=== PATIENT | male | born 1940 | race Caucasian/White ===

== ENCOUNTER 2022-03-04 07:33 | Day surgery (SDC) | payer MEDICARE, OTHER, SELFPAY ==
[2022-03-04] MEDS: Tropicam./Phenyleph. (1/2.5%) 5 ML BTL OS ×3 (08:34→08:48)
[2022-03-04 08:35] VITALS: BP 124/84; PULSE 46; RESP 18; TEMP 36.1; O2SAT 97
--- NOTE | 2022-03-04 08:59 | ANES.PREOP_ITS ---
General Info Date of Service Date Performed: 03/04/22 Height: 5 ft 10.5 in Weight: 70.5 kg Body Mass Index (BMI): 21.9 Surgical Procedure: Operation Date: 03/04/22 09:55 Proposed Procedure Side Surgeon p Cataract Extraction with IOL Implant Left Carlos Schroeder MD Meds Allergies and Home Medications Allergies Allergy/AdvReac Type Severity Reaction Status Date / Time No Known Allergies Allergy Unverified 03/04/22 08:28 Home Medication Medication Instructions Recorded aspirin 81 mg capsule,delayed 81 mg PO DAILY 02/28/22 release atenolol 100 mg-chlorthalidone 25 0.5 tab PO DAILY 02/28/22 mg tablet atorvastatin 80 mg tablet 80 mg PO DAILY 02/28/22 finasteride 5 mg tablet 5 mg PO DAILY 02/28/22 trazodone 50 mg tablet 50 mg PO HS PRN 02/28/22 clopidogrel 75 mg tablet 75 mg PO DAILY 03/04/22 Current Visit Medications: Current Medications Generic Name Dose Route Start Last Admin Trade Name Freq PRN Reason Stop Dose Admin Acetaminophen 1,000 mg 03/04/22 06:00 Acetaminophen 500 Mg Tab PO Q4H PRN PRN Miscellaneous Medication 0 ml 03/04/22 06:00 Prednisolone 1%, Moxifloxacin 0.5%, Nepafenac 0.1% 5ml Btl OS DIRECTED PORTIA Miscellaneous Medication 0 ml 03/04/22 06:00 03/04/22 08:48 Tropicam./Phenyleph. (1/2.5%) 5 Ml Btl OS 1 drp DIRECTED PORTIA Administration Tetracaine HCl 0 ml 03/04/22 06:00 Tetracaine 0.5% 4 Ml Btl OS DIRECTED PORTIA PFSH Active Problems Active Problems: Problem Status Onset Code Cortical cataract of left eye H26.9 Nuclear sclerotic cataract of left eye H25.12 Medical History Medical History Asbestosis Hx of carotid artery stenosis Hyperplasia of prostate Hypertensive disorder Raised prostate specific antigen Trigger finger of right hand Surgical History Surgical History H/O knee surgery Hx of colonoscopy Hx of heart surgery TCAR 12/24/21 Hx of hernia repair Tobacco Smoking/Tobacco Use Status: Current every day Tobacco Type: cigarettes Smoking cigarettes per day: 2 Years smoked: 66 Alcohol Alcohol Intake: current Alcohol intake frequency: holidays/special occasions only Substance Use Substance use type: does not use Vital Signs and Lab Results Vital Signs Most Recent Vital Signs in EMR: Most Recent Vital Signs Temp Pulse Resp BP Pulse Ox 36.1 C L 46 L 18 124/84 97 03/04/22 08:35 03/04/22 08:35 03/04/22 08:35 03/04/22 08:35 03/04/22 08:35 Lab Results Blood Type / Crossmatch: No Data to Display Complete Blood Count: No Data to Display Complete Metabolic Panel: No Data to Display Liver Function Panel: No Data to Display Coagulation Panel: No Data to Display Cardiac Panel: No Data to Display Arterial Blood Gas: No Data to Display Venous Blood Gas: No Data to Display Pancreas Panel: No Data to Display Thyroid Panel: No Data to Display Infectious Disease: No Data to Display Blood Cultures: No Data to Display Toxicology Panel: No Data to Display Anesthesia Assessment and Plan Anesthesia History Personal History: No History of Anesthesia Complications Family History: No Family History of Anesthesia Complications Exercise Tolerance Exercise Tolerance: Metabolic Equivalents>4 Pertinent Negatives Pertinent Negatives: No Symptoms of GERD and No Major Pulmonary Symptoms or Complaints Cardiac & Pulmonary Exam Cardiac Exam: Normal S1/S2 Heart Sounds Pulmonary Exam: Clear Bilateral Breath Sounds Implantable Cardiac Device Does patient have a Pacemaker or an ICD?: No Airway Exam Known Difficult Airway: No Mallampati Class: 2 Mouth Opening: Normal (> 3cm) Thyromental Distance: Greater than 3 cm Neck Range of Motion: Full ROM Neck Circumference: Normal Teeth Condition: Removable Dentures/Plates Upper, Removable Dentures/Plates Lower and Edentulous ASA Classification ASA Score: ASA 3 Emergency Case?: No NPO Status NPO Status: NPO Clears >2 hours, Solids >8 hours Anesthesia Plan Resuscitation Status: Full Code Anesthesia Technique: MAC Anesthesia Airway Planned: Natural Airway Monitors Used: Standard Monitors Preoperative Comments:: Patient had follow up with Dr. Anne Hunter MD on 01/30/22 [place] [facility] [place] Per MD's note in system, physician is ok for patient to proceed with cataract surgery as long as patient remains on Aspirin 81mg.
[2022-03-04 09:01] VITALS: BMI 21.9
[2022-03-04] MEDS: Povidone-Iodine Ophth 30 ML BTL (09:36)
[2022-03-04] MEDS: Tetracaine 0.5% 4 ML BTL OS (09:36)
[2022-03-04] MEDS: Lidocaine 2% Jelly 6 ML SYR (09:36)
[2022-03-04] MEDS: Balanced Salt Soln.-PLUS 500 ML BAG (09:47)
[2022-03-04] MEDS: Duovisc Viscoelastic System EACH 1 EACH (09:47)
[2022-03-04] MEDS: Trypan Blue 0.06% 0.5 ML SYR (09:50)
[2022-03-04 10:12] VITALS: BP 113/85; PULSE 57; RESP 16; TEMP 36.1; O2SAT 95
--- NOTE | 2022-03-04 10:13 | W.PM.DSUDISC ---
Discharge Plan Disposition Patient Disposition: HOME Condition: Good Discharge Details Attending Provider: Carlos Schroeder Primary Care Provider: Armaan Sands Home Meds and New Rx's Prescriptions: No Action atorvastatin 80 mg tablet 80 mg PO DAILY 0RF Label Comments: TAKE 1 TABLET BY MOUTH EVERY DAY atenolol-chlorthalidone 100-25 mg tablet 0.5 tab PO DAILY 0RF Label Comments: TAKE 1/2 TABLET BY MOUTH EVERY DAY trazodone 50 mg tablet 50 mg PO HS PRN0RF Label Comments: TAKE 1 TABLET BY MOUTH EVERY DAY aspirin 81 mg Capsule,Delayed Release(Dr/Ec) 81 mg PO DAILY 0RF finasteride 5 mg tablet 5 mg PO DAILY 0RF Label Comments: TAKE 1 TABLET BY MOUTH EVERY DAY clopidogrel 75 mg tablet 75 mg PO DAILY 0RF Label Comments: TAKE 1 TABLET BY MOUTH DAILY Discharge Instructions Stand Alone Forms: Post-op Topical Cataract, Sunshine Sabillon (DSU) Discharge Orders Discharge Orders: Discharge Order (Routine); Ordered 03/04/22 Ordered By: Carlos Schroeder DS: Diagnosis Discharge Diagnosis (1) Posterior subcapsular age-related cataract of left eye: Status: Resolved
--- NOTE | 2022-03-04 10:14 | ROE_ITS ---
Date of service: 03/04/22 Time of Service: 10:14 Operative Note Operative Note DATE OF PROCEDURE: 03/04/22 PRE-OP DIAGNOSIS: Nuclear/cortical/posterior subcapsular cataract, left eye Poor red reflex, left eye secondary to cataract POST-OP DIAGNOSIS: same PROCEDURE: Cataract extraction using phacoemulsification with intraocular lens implant, left eye, using capsular staining with Vision Blue SURGEON: Carlos Schroeder ANESTHESIA TYPE: Local By Surgeon and MAC Refer to Anesthesia Record COMPLICATIONS: None Patient was transported to: same day Patient's condition: stable Implants: Neto and Neto / [employer] Tecnis [id number] Indications: Progressive decreased vision due to cataract, left eye, with poor red reflex Procedure Description: CATARACT SURGERY OPERATIVE REPORT PREOPERATIVE DIAGNOSIS: 1. Nuclear/cortical/posterior subcapsular cataract, left eye 2. Poor red reflex secondary to #1 POSTOPERATIVE DIAGNOSIS: Same OPERATION: 1. Cataract extraction using phacoemulsification with posterior chamber intraocular lens implant, left eye. 2. Capsular staining with Vision Blue IOL: IOL Truck Body Builder Apprentice/Model: Neto & Neto / KATARZYNA Tecnis [id number] IOL Power: + 22.0 diopters IOL Serial Number: [id number] Optic Diameter: 6.0 mm Haptic/Overall Diameter: 13.0 mm PHACO INFO: Isacc Cognectionurion Vision System with OZil and Active Fluidics Cumulative Dispersed Energy (CDE): 11.89 seconds SURGEON: Carlos Schroeder MD, MAIKEL ANESTHESIA: Monitored A [facility] (MAC), with local sub-tenon's anesthetic infiltration COMPLICATIONS: None SPECIMENS: None INDICATIONS FOR PROCEDURE: Patient is an 81-year-old gentleman with history of diminished visual acuity in his left eye secondary to development of significant nuclear/cortical/posterior subcapsular cataract. He also has a history of nasal pterygium of the left eye. The option of cataract surgery was offered to the patient and he felt he was symptomatic enough that he wished to proceed. PROCEDURE: The correct surgical eye was identified and marked as the left eye and the pupil was dilated in the preoperative area using mydriatics and cycloplegics. The dilated pupil size was 6.5 mm. He elected to proceed without oral sedation. The patient was brought to the operating room where cardiopulmonary monitoring was instituted and surgical time-out was performed, confirming the correct operative eye and IOL power. Topical anesthesia was administered and ophthalmic povidone-iodine 5% was instilled into the conjunctival fornices. Lidocaine gel was applied to the cornea and the haroldo-ocular area was prepped with Betadine 10% solution and draped in the usual sterile fashion for intraocular surgery, including an aperture drape. A Tegaderm transparent film dressing was cut in half and used to cover the lashes and lid margins. Care was taken to sequester the lashes and lid margins under the Tegaderm dressing. A lid speculum was placed between the lids of the operative eye and the Isacc LuxOR Revalia operating microscope was maneuvered into position. Anisa scissors were then used to make a conjunctival buttonhole approximately 6mm posterior to the limbus in the inferonasal quadrant. Blunt dissection was carried out to expose bare sclera, and a blunt-tipped sub-tenon?s anesthesia cannula was introduced and passed posteriorly along the globe where non- preserved plain lidocaine was injected into posterior sub-Tenon?s space. A katie eport knife was used to make a paracentesis port superiorly/superiortemporally. Intraocular phenylephrine/lidocaine was injected int the anterior chamber.. Air was then injected into the anterior chamber, followed by Vision Blue, which was painted over the anterior capsule and then irrigated out using BSS. The anterior chamber was filled with viscoelastic. A 2.4mm keratome knife was used to create a half-thickness groove at the limbus and then to construct a three- plane near-clear corneal tunnel extending 2.0mm into clear cornea at the 3:00 position. A flap was raised on the anterior capsule and capsulorhexis forceps were used to complete a continuous curvilinear capsulorhexis of 5.0 mm. Capsulorhexis was challenging due to constant eye movement, as well as poor visualization nasally due to the significant pterygium. Balanced salt solution was then used to perform cortical cleaving hydrodissection and nuclear hydrodelineation until the lens could be freely rotated within the capsular bag. The lens nucleus was then disassembled and removed within the capsular bag and iris plane using phacoemulsification. Residual cortical material was removed using the 45-degree angled silicone I/A tip with 0.3mm port. The posterior capsule was carefully polished to remove as much residual lens epithelial cells as safely possible. The capsular bag was then inflated and the anterior chamber deepened with viscoelastic. The lens implant described above was inserted into the capsular bag using the KATARZYNA Circle Injector. A Kuglen hook was used to dial the IOL into position. Residual viscoelastic was then removed first from posterior to the IOL, then from the anterior chamber using the I/A handpiece. The lens implant was noted to center nicely within the capsular bag. The incisions were stromally hydrated, and the anterior chamber was reformed using BSS. Then 0.5cc of moxifloxacin 1.0mg/ml were injected into the capsular bag and anterior chamber. The incisions were checked with a Weck spear and found to be secure. Several drops of ophthalmic povidone-iodine 5% were then applied to the eye followed by two drops of Imprimis combination prednisolone/moxifloxacin/nepafenac solution. The drapes were removed and a clear plastic protective eye shield was placed over the eye. The patient was then returned to Same Day Surgery in stable condition.
--- NOTE | 2022-03-04 10:35 | W.ANESPOSTOP ---
Postoperative Evaluation Date, Time and Location Date Performed: 03/04/22 Time Performed: 10:20 Patient Location: Day Surgery Unit Vital Signs Most Recent Imported Vital Signs: Most Recent Vital Signs Temp Pulse Resp BP Pulse Ox 36.1 C L 57 L 16 113/85 95 03/04/22 10:12 03/04/22 10:12 03/04/22 10:12 03/04/22 10:12 03/04/22 10:12 Pain Score Most Recent Pain Score: Most Recent Pain Score Pain Level 0 03/04/22 10:12 Assessment Mental Status: Awake (Alert & Oriented to Patient Baseline) Airway and Respiratory Function: Patent airway with normal (patient baseline) respiratory exam Cardiovascular Function: Hemodynamically Stable Hydration Status: Adequately Hydrated Nausea & Vomiting: No Nausea or Vomiting Pain: Pt. Denies Any Pain Peripheral Nerve Block: Patient did not receive a nerve block
== END 2022-03-04 10:33 | disposition home or self-care (01) ==
PROVIDERS: PCP Internal Medicine; Visit Provider Ophthalmology
PROC: (CPT 66984; principal; 2022-03-04 09:45)
DX: H25.042 Posterior subcapsular polar age-related cataract, left eye (principal); N40.0 Benign prostatic hyperplasia without lower urinary tract symptoms; I10 Essential (primary) hypertension; J61 Pneumoconiosis due to asbestos and other mineral fibers
CPT/HCPCS: 66984; V2632

== ENCOUNTER 2022-03-18 08:46 | Day surgery (SDC) | payer MEDICARE, BC, SELFPAY ==
[2022-03-18 09:14] VITALS: BP 115/65; PULSE 54; RESP 16; TEMP 36.3; O2SAT 96
[2022-03-18] MEDS: Tropicam./Phenyleph. (1/2.5%) 5 ML BTL OD ×3 (09:27→09:37)
--- NOTE | 2022-03-18 09:34 | W.ANESPRE ---
General Info Date of Service Date Performed: 03/18/22 Height: 5 ft 10.5 in Weight: 69.5 kg Body Mass Index (BMI): 21.7 Surgical Procedure: Operation Date: 03/18/22 10:40 Proposed Procedure Side Surgeon p Cataract Extraction with IOL Implant Right Carlos Schroeder MD Meds Allergies and Home Medications Allergies Allergy/AdvReac Type Severity Reaction Status Date / Time No Known Allergies Allergy Verified 03/18/22 09:19 Home Medication Medication Instructions Recorded aspirin 81 mg capsule,delayed 81 mg PO DAILY 02/28/22 release atenolol 100 mg-chlorthalidone 25 0.5 tab PO DAILY 02/28/22 mg tablet atorvastatin 80 mg tablet 80 mg PO DAILY 02/28/22 finasteride 5 mg tablet 5 mg PO DAILY 02/28/22 trazodone 50 mg tablet 50 mg PO HS PRN 02/28/22 Current Visit Medications: Current Medications Generic Name Dose Route Start Last Admin Trade Name Freq PRN Reason Stop Dose Admin Acetaminophen 1,000 mg 03/18/22 06:00 Acetaminophen 500 Mg Tab PO Q4H PRN PRN Miscellaneous Medication 0 ml 03/18/22 06:00 Prednisolone 1%, Moxifloxacin 0.5%, Nepafenac 0.1% 5ml Btl OD DIRECTED PORTIA Miscellaneous Medication 0 ml 03/18/22 06:00 03/18/22 09:32 Tropicam./Phenyleph. (1/2.5%) 5 Ml Btl OD 1 drp DIRECTED PORTIA Administration Tetracaine HCl 0 ml 03/18/22 06:00 Tetracaine 0.5% 4 Ml Btl OD DIRECTED PORTIA PFSH Active Problems Active Problems: Problem Status Onset Code Cortical cataract of right eye H26.9 Nuclear sclerotic cataract of right eye H25.11 Posterior subcapsular age-related cataract of left eye H25.042 Cortical cataract of left eye H26.9 Nuclear sclerotic cataract of left eye H25.12 Medical History Medical History (Updated 03/18/22 @ 09:39 by Cas Staton, [employer]) Asbestosis Hx of carotid artery stenosis 11/2021: Pt had Right TCAR Hyperplasia of prostate Hypertensive disorder Raised prostate specific antigen Trigger finger of right hand Surgical History Surgical History H/O knee surgery Hx of colonoscopy Hx of heart surgery TCAR 12/24/21 Hx of hernia repair Tobacco Smoking/Tobacco Use Status: Current every day Tobacco Type: cigarettes Smoking cigarettes per day: 2 Years smoked: 66 Alcohol Alcohol Intake: current Alcohol intake frequency: holidays/special occasions only Alcohol type: hard liquor Substance Use Substance use type: does not use Vital Signs and Lab Results Vital Signs Most Recent Vital Signs in EMR: Most Recent Vital Signs Temp Pulse Resp BP Pulse Ox 36.3 C L 54 L 16 115/65 96 03/18/22 09:14 03/18/22 09:14 03/18/22 09:14 03/18/22 09:14 03/18/22 09:14 Lab Results Blood Type / Crossmatch: No Data to Display Complete Blood Count: No Data to Display Complete Metabolic Panel: No Data to Display Liver Function Panel: No Data to Display Coagulation Panel: No Data to Display Cardiac Panel: No Data to Display Arterial Blood Gas: No Data to Display Venous Blood Gas: No Data to Display Pancreas Panel: No Data to Display Thyroid Panel: No Data to Display Infectious Disease: No Data to Display Blood Cultures: No Data to Display Toxicology Panel: No Data to Display Anesthesia Assessment and Plan Anesthesia History Personal History: No History of Anesthesia Complications Family History: No Family History of Anesthesia Complications Exercise Tolerance Exercise Tolerance: Metabolic Equivalents>4 Pertinent Negatives Pertinent Negatives: No Symptoms of GERD, No Major Cardiovascular Symptoms or Complaints, No Major Pulmonary Symptoms or Complaints (Smoker quit 6 months 65 pack years) and No History of CVA/TIA (Right vertebral artery ) Cardiac & Pulmonary Exam Cardiac Exam: Normal S1/S2 Heart Sounds Pulmonary Exam: Clear Bilateral Breath Sounds Implantable Cardiac Device Does patient have a Pacemaker or an ICD?: No Airway Exam Known Difficult Airway: No Mallampati Class: 2 Mouth Opening: Normal (> 3cm) Thyromental Distance: Greater than 3 cm Neck Range of Motion: Full ROM Neck Circumference: Normal Teeth Condition: Removable Dentures/Plates Upper, Removable Dentures/Plates Lower and Edentulous ASA Classification ASA Score: ASA 2 Emergency Case?: No NPO Status NPO Status: NPO Clears >2 hours, Solids >8 hours Anesthesia Plan Resuscitation Status: Full Code Anesthesia Technique: MAC Anesthesia Airway Planned: Natural Airway Monitors Used: Standard Monitors
[2022-03-18 09:56] VITALS: BMI 21.7
[2022-03-18] MEDS: Tetracaine 0.5% 4 ML BTL OD (11:10)
[2022-03-18] MEDS: Balanced Salt Soln.-PLUS 500 ML BAG (11:11)
[2022-03-18] MEDS: Duovisc Viscoelastic System EACH 1 EACH (11:15)
[2022-03-18] MEDS: Lidocaine 2% Jelly 6 ML SYR (11:17)
[2022-03-18] MEDS: Povidone-Iodine Ophth 30 ML BTL (11:19)
[2022-03-18 11:27] VITALS: BP 122/83; PULSE 53; RESP 16; TEMP 36.2; O2SAT 97
--- NOTE | 2022-03-18 11:28 | W.PM.DSUDISC ---
Discharge Plan Disposition Patient Disposition: HOME Condition: Good Discharge Details Attending Provider: Carlos Schroeder Primary Care Provider: Armaan Sands Home Meds and New Rx's Prescriptions: No Action atorvastatin 80 mg tablet 80 mg PO DAILY Label Comments: TAKE 1 TABLET BY MOUTH EVERY DAY atenolol-chlorthalidone 100-25 mg tablet 0.5 tab PO DAILY Label Comments: TAKE 1/2 TABLET BY MOUTH EVERY DAY trazodone 50 mg tablet 50 mg PO HS PRN Label Comments: TAKE 1 TABLET BY MOUTH EVERY DAY aspirin 81 mg Capsule,Delayed Release(Dr/Ec) 81 mg PO DAILY finasteride 5 mg tablet 5 mg PO DAILY Label Comments: TAKE 1 TABLET BY MOUTH EVERY DAY Discharge Instructions Stand Alone Forms: Post-op Topical Cataract, Sunshine Sabillon (DSU) Discharge Orders Discharge Orders: Discharge Order (Routine); Ordered 03/18/22 Ordered By: Carlos Schroeder
--- NOTE | 2022-03-18 11:28 | W.ANESPOSTOP ---
Postoperative Evaluation Date, Time and Location Date Performed: 03/18/22 Time Performed: 11:28 Patient Location: Day Surgery Unit Vital Signs Most Recent Imported Vital Signs: Most Recent Vital Signs Temp Pulse Resp BP Pulse Ox 36.3 C L 54 L 16 115/65 96 03/18/22 09:14 03/18/22 09:14 03/18/22 09:14 03/18/22 09:14 03/18/22 09:14 Most Recent Manually Entered Vital Signs: Adult Blood Pressure: 122/83 Heart Rate: 57 Respirations: 12 Oxygen Saturation (%): 98 Temperature (C): 363 C Pain Score (0-10 Scale): 0 Pain Score Most Recent Pain Score: Most Recent Pain Score Pain Level 0 03/18/22 09:14 Assessment Mental Status: Awake (Alert & Oriented to Patient Baseline) Airway and Respiratory Function: Patent airway with normal (patient baseline) respiratory exam Cardiovascular Function: Hemodynamically Stable Hydration Status: Adequately Hydrated Nausea & Vomiting: No Nausea or Vomiting Pain: Pt. Denies Any Pain Peripheral Nerve Block: Patient did not receive a nerve block
[2022-03-18 11:29] VITALS: BP 122/83; PULSE 57; RESP 12; TEMPC 363; TEMPC 685.4; O2SAT 98
--- NOTE | 2022-03-18 11:29 | ROE_ITS ---
Date of service: 03/18/22 Time of Service: 10:29 Operative Note Operative Note DATE OF PROCEDURE: 03/18/22 PRE-OP DIAGNOSIS: Nuclear/cortical cataract, right eye POST-OP DIAGNOSIS: same PROCEDURE: Cataract extraction using phacoemulsification with intraocular lens implant, right eye SURGEON: Carlos Schroeder ANESTHESIA TYPE: Local By Surgeon and MAC Refer to Anesthesia Record ESTIMATED BLOOD LOSS: 0 PATHOLOGY: none sent COMPLICATIONS: None Patient was transported to: same day Patient's condition: stable Implants: Neto & Neto/KATARZYNA Tecnis [id number] Indications: Progressive visual loss due to cataract, right eye Procedure Description: CATARACT SURGERY OPERATIVE REPORT PREOPERATIVE DIAGNOSIS: 1. Nuclear/cortical cataract, right eye POSTOPERATIVE DIAGNOSIS: Same OPERATION: 1. Cataract extraction using phacoemulsification with posterior chamber intraocular lens implant, right eye. IOL: IOL Aviation Tactical Readiness Officer/Model: Neto & Neto / KATARZYNA Tecnis [id number] IOL Power: + 23.0 diopters IOL Serial Number: [id number] Optic Diameter: 6.0mm Haptic/Overall Diameter: 13.0mm PHACO INFO: Isacc mySchoolNotebookurion Vision System with OZil and Active Fluidics Cumulative Dispersed Energy (CDE): 10.13 seconds SURGEON: Carlos Schroeder MD, MAIKEL ANESTHESIA: Monitored Anesthesia Care (MAC), with local sub-tenon's anesthetic infiltration COMPLICATIONS: None SPECIMENS: None INDICATIONS FOR PROCEDURE: The patient is an 81-year-old gentleman with history of diminished visual acuity in both eyes secondary to the development of bilateral cataracts. He has already undergone cataract surgery in the left eye and is doing well postoperatively. He now presents for cataract surgery in the right eye. PROCEDURE: The correct surgical eye was identified and marked as the right eye and the pupil was dilated in the preoperative area using mydriatics and cycloplegics. The dilated pupil size was 7.0 mm. He elected to proceed without oral sedation.. The patient was brought to the operating room where cardiopulmonary monitoring was instituted and surgical time-out was performed, confirming the correct operative eye and IOL power. Topical anesthesia was administered and ophthalmic povidone-iodine 5% was instilled into the conjunctival fornices. Lidocaine gel was applied to the cornea and the haroldo-ocular area was prepped with Betadine 10% solution and draped in the usual sterile fashion for intraocular surgery, including an aperture drape. A Tegaderm transparent film dressing was cut in half and used to cover the lashes and lid margins. Care was taken to sequester the lashes and lid margins under the Tegaderm dressing. A lid speculum was placed between the lids of the operative eye and the Isacc LuxOR Revalia operating microscope was maneuvered into position. Anisa scissors were then used to make a conjunctival buttonhole approximately 6mm posterior to the limbus in the inferonasal quadrant. Blunt dissection was carried out to expose bare sclera, and a blunt-tipped sub-tenon?s anesthesia cannula was introduced and passed posteriorly along the globe where non- preserved plain lidocaine was injected into posterior sub-Tenon?s space. A sideport knife was used to make a paracentesis port inferotemporally. Intrao cular phenylephrine/lidocaine was injected into the anterior chamber. The anterior chamber was filled with viscoelastic. A 2.4mm keratome knife was used to construct a 2-plane near-clear corneal tunnel extending 2.0mm into clear cornea superiortemporally. A flap was raised on the anterior capsule and capsulorhexis forceps were used to complete a continuous curvilinear capsulorhexis of 5.0 mm. Balanced salt solution was then used to perform cortical cleaving hydrodissection and nuclear hydrodelineation until the lens could be freely rotated within the capsular bag. The lens nucleus was then disassembled and removed within the capsular bag and iris plane using phacoemulsification. Residual cortical material was removed using the I/A handpiece. The posterior capsule was carefully polished to remove as much residual lens epithelial cells as safely possible. The capsular bag was then inflated and the anterior chamber deepened with viscoelastic. The lens implant described above was inserted into the capsular bag using the KATARZYNA [place] Injector. A Kuglen hook was used to dial the IOL into position. Residual viscoelastic was then removed first from posterior to the IOL, then from the anterior chamber using the I/A handpiece. The lens implant was noted to center nicely within the capsular bag. The incisions were stromally hydrated, and the anterior chamber was reformed using BSS. Then 0.5cc of moxifloxacin 1.0mg/ml were injected into the capsular bag and anterior chamber. The incisions were checked with a Weck spear and found to be secure. Several drops of ophthalmic povidone-iodine 5% were then applied to the eye followed by two drops of Imprimis combination prednisolone/moxifloxacin/nepafenac solution. The drapes were removed and a clear plastic protective eye shield was placed over the eye. The patient was then returned to Same Day Surgery in stable condition.
== END 2022-03-18 11:46 | disposition home or self-care (01) ==
PROVIDERS: PCP Internal Medicine; Visit Provider Ophthalmology
PROC: (CPT 66984; principal; 2022-03-18 10:30)
DX: H25.11 Age-related nuclear cataract, right eye (principal); I10 Essential (primary) hypertension; Z79.899 Other long term (current) drug therapy; F17.210 Nicotine dependence, cigarettes, uncomplicated
CPT/HCPCS: 66984; V2632

== ENCOUNTER → 2023-12-30 10:25 | Outpatient (BNVA) | payer MEDICARE, BC, OTHER, SELFPAY | PROVIDERS: PCP Internal Medicine; Referring Provider Internal Medicine; Visit Provider Student in an Organized Health Care Education/Training Program | DX: J44.9 Chronic obstructive pulmonary disease, unspecified (principal); I27.20 Pulmonary hypertension, unspecified; Z87.891 Personal history of nicotine dependence; R91.1 Solitary pulmonary nodule | CPT/HCPCS: 99214 ==